=== PATIENT | female | born 1980 | race Caucasian/White ===

== ENCOUNTER 2018-06-05 06:54 | Day surgery (SDC) | payer OTHER ==
[2018-06-05] MEDS ORDERED: LIDOCAINE 1% 2 ML INJ ID PRN (07:39)
[2018-06-05] MEDS ORDERED: LR 1,000 ML IV ONE (07:39)
--- NOTE | 2018-06-05 09:06 | PDANEPAE ---
ANE Past Medical History - Cardiovascular History Hx Hypertension: No Hx Arrhythmias: No Hx Chest Pain: No Hx Coronary Artery / Peripheral Vascular Disease: No Hx CHF / Valvular Disease: No Hx Palpitations: No - Pulmonary History Hx COPD: No Hx Asthma/Reactive Airway Disease: No Hx Recent Upper Respiratory Infection: No Hx Oxygen in Use at Home: No Hx Sleep Apnea: No Sleep Apnea Screening Result - Last Documented: Negative - Neurologic History Hx Cerebrovascular Accident: No Hx Seizures: No Hx Dementia: No Neurologic History Comment: OCCAS MIGRAINES IN PAST - Endocrine History Hx Diabetes: No Hypothyroid: No Hyperthyroid: No Obesity: yes, moderate - Renal History Hx Renal Disorders: No Renal History Comment: OCCAS UTIs IN PAST - Liver History Hx Hepatic Disorders: No - Neurological & Psychiatric Hx Hx Neurological and Psychiatric Disorders: Yes Neurological / Psychiatric History Comment: CHRONIC DEPRSSION - Cancer History Hx Cancer: No - Congenital Disorder History Hx Congenital Disorders: No - GI History GERD: severe Hx Gastrointestinal Disorders: Yes Gastrointestinal History Comment: GERD - Other Health History Other Health History: NEG - Chronic Pain History Chronic Pain: No (ARTHRITIS - JOINT PAIN) - Surgical History Prior Surgeries: ENDOSCOPY ANE Review of Systems Review of Systems: - Exercise capacity Exercise capacity: >=4 METS METS (RN): 5 METS ANE Patient History - Allergies Allergies/Adverse Reactions: No Known Allergies Allergy (Unverified 05/27/18 10:14) - Home Medications Home Medications: Abilify 05/27/18 [Last Taken 06/05/18 06:00] Adderall 10 MG (*) 05/27/18 [Last Taken 1 Day Ago ~06/04/18] Ambien 05/27/18 [Last Taken 1 Day Ago ~06/04/18] Cogentin 05/27/18 [Last Taken 06/05/18 06:00] Cymbalta 05/27/18 [Last Taken 06/05/18 06:00] Pantoprazole Sodium 05/27/18 [Last Taken 06/05/18 06:00] Ranitidine HCl 05/27/18 [Last Taken 06/05/18 06:00] Tylenol 05/27/18 [Last Taken 06/05/18 06:00] - NPO status NPO Since - Liquids (Date): 06/04/18 NPO Since - Liquids (Time): 19:30 NPO Since - Solids (Date): 06/04/18 NPO Since - Solids (Time): 18:30 - Anes Hx Anes Hx: no prior problems - Smoking Hx Smoking Status: Never smoked Marijuana use: Yes - Alcohol Use Alcohol Use: Rarely - Family Anes Hx Family Anes Hx: neg - N/A Family Hx Anesthesia Complications: NEG ANE Labs/Vital Signs - Vital Signs Blood Pressure: 144/86 Heart Rate: 79 Respiratory Rate: 18 O2 Sat (%): 94 Height: 165.1 cm Weight: 104.326 kg ANE Physical Exam - Airway Neck exam: FROM Mallampati Score: Class 2 Mouth exam: normal dental/mouth exam - Pulmonary Pulmonary: no respiratory distress, no rales or rhonchi, clear to auscultation - Cardiovascular Cardiovascular: regular rate and rhythym, no murmur, rub, or gallop - ASA Status ASA Status: II ANE Anesthesia Plan Anesthesia Plan: MAC Total IV Anesthesia: Yes
--- NOTE | 2018-06-05 09:11 | PDGENHP ---
History & Physical Chief Complaint: Heartburn and Dysphagia History of Present Illness: 38 year old female with GERD with esophagitis and dysphagia. On Pantoprazole 40 mg BID and Zantac 150 mg qhs. ASA II Relevant Physical Exam: Alert and oriented x 3, MM moist, Mallampati 1, Abdomen soft non tender Cardiorespiratory Assessment: RRR, CTAB
[2018-06-05] MEDS ORDERED: fentaNYL 100 MCG/2 ML INJ ONE (09:13)
[2018-06-05] MEDS ORDERED: GLYCOPYRROLATE 0.2 MG/1 ML VIAL ONE (09:14)
[2018-06-05] MEDS ORDERED: PROPOFOL/EMULSION 500 MG/50 ML BOTTLE IV ONE (09:16)
[2018-06-05] MEDS ORDERED: ONDANSETRON 4 MG/2 ML VIAL IVP PRN (09:32)
[2018-06-05] MEDS ORDERED: PROMETHAZINE HCL 25 MG/ML INJ IVP PRN (09:32)
[2018-06-05] MEDS ORDERED: NALOXONE HCL 0.4 MG/ML INJ IVP PRN (09:32)
[2018-06-05] MEDS ORDERED: PHENYLEPHRINE HCL 100 MCG/ML SYR IVP PRN (09:32)
[2018-06-05] MEDS ORDERED: ACETAMINOPHEN 500 MG TAB PO PRN (09:32)
[2018-06-05] MEDS ORDERED: HYDROCODONE/APAP 5/325 TAB PO PRN (09:32)
[2018-06-05] MEDS ORDERED: LR 500 ML IV PRN (09:32)
--- NOTE | 2018-06-05 09:42 | GIREPORT ---
[facility] Surgical Services - Endoscopy Department Patient Name: Galina Malik Procedure Date: 06/05/2018 9:11 AM Patient Type: Outpatient Attending MD/ ER Physician: Luann Bergman MD Procedure: Upper GI endoscopy Indications: Epigastric abdominal pain, Dysphagia, Heartburn Patient Profile: Currently taking pantoprazole 40 mg BID and zantac 150 mg qhs Providers: Luann Bergman MD Medicines: Monitored Anesthesia Care Complications: No immediate complications. Description of Procedure: After obtaining informed consent, the endoscope was passed under direct vision. Throughout the procedure, the patient's blood pressure, pulse, and oxygen saturations were monitored continuously. The Endoscope was intro duced through the mouth, and advanced to the second part of duodenum. The [facility] er GI endoscopy was accomplished without difficulty. The patient tolerated th e procedure well. Findings: The proximal esophagus and mid esophagus were normal. Biopsies were gabby en with a cold forceps for histology. Estimated blood loss was minimal. LA Grade B (one or more mucosal breaks greater than 5 mm, not extending between the tops of two mucosal folds) esophagitis with no bleeding was found 35 to 38 cm from the incisors. Biopsies were taken with a cold fo rceps for histology. Estimated blood loss was minimal. One benign-appearing, intrinsic stenosis was found 38 cm from the incis ors. This stenosis was mildly severe (non-circumferential scarring) and angelina ured 1.5 cm (inner diameter) x less than one cm (in length). The stenosis wa s traversed. A TTS dilator was passed through the scope. Dilation with a 15-16.5-18 mm balloon dilator was performed to 16.5 mm. Estimated blood loss was minimal. A small type-III paraesophageal hernia was found. Diffuse moderate inflammation characterized by erosions, erythema and aphthous ulcerations was found in the entire examined stomach. Biopsies were taken with a cold forceps for Helicobacter pylori testing. Estimated bl ood loss was minimal. The duodenal bulb, first portion of the duodenum and second portion of the duodenum were normal. Biopsies for histology were taken with a cold for ceps for evaluation of celiac disease. Estimated blood loss was minimal. Estimated Blood Loss: Estimated blood loss was minimal. Post Op Diagnosis: - Normal proximal esophagus and mid esophagus. Biopsied. - LA Grade B reflux esophagitis. Rule out Ramírez's esophagus. Biopsied . - Benign-appearing esophageal stenosis. Dilated. - Small mixed paraesophageal/ hiatal hernia. - Gastritis. Biopsied. - Normal duodenal bulb, first portion of the duodenum and second portio n of the duodenum. Biopsied. Recommendation: - Patient has a contact number available for emergencies. The signs and symptoms of potential delayed complications were discussed with the pat ient. Return to normal activities tomorrow. Written discharge instructions we re provided to the patient. - Resume previous diet. - Follow an antireflux regimen. Advise weight loss and elevated head of the bed when sleeping. - Continue present medications. - Await results of biopsies. - Return to GI clinic with Dr. oChen or [place] after studies are complete. - Thank you for allowing me to participate in the care of this patient. Attending Participation: I personally performed the entire procedure. Luann Bergman MD Luann Bergman MD 06/05/2018 9:41:25 AM This report has been signed electronicallyLuann Bergman MD Number of Addenda: 0 Note Initiated On: 06/05/2018 9:11 AM [email or web address]
--- NOTE | 2018-06-05 10:07 | POSTANESTH ---
Post Anesthetic Evaluation Cardiovascular Status: Normal, Stable Respiratory Status: Normal, Stable Level of Consciousness/Mental Status: Can Participate in Eval Pain Control: Adequate, Prn Tx Ordered Nausea/Vomiting Control: Adequate, Prn Tx Ordered Complications Possibly Related to Anesthesia: None Noted
[2018-06-05 10:55] VITALS: BP 136/78
== END 2018-06-05 10:40 | disposition home or self-care (01) ==
LOC: FSGY 06:54
PROVIDERS: ATTEND Internal Medicine Gastroenterology
DX: K22.2 Esophageal obstruction (principal); R13.10 Dysphagia, unspecified; R10.13 Epigastric pain; K21.0 Gastro-esophageal reflux disease with esophagitis; K44.9 Diaphragmatic hernia without obstruction or gangrene; K29.70 Gastritis, unspecified, without bleeding
CPT/HCPCS: 43239; 43249; C1726; J2704; J3010